=== PATIENT | male | born 1995 | race Caucasian/White ===

== ENCOUNTER 2019-10-10 13:39 | Day surgery (SDC) | payer OTHER ==
[~2019-10-10] VITALS: Ht 185.4 cm; Wt 80.0 kg
--- NOTE | 2019-10-10 15:38 | NUR ---
GENERAL SURGERY PHYSICIAN ASSISTANT: PT TO ROOM FROM LOBBY VIA
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
--- NOTE | 2019-10-10 15:56 | NUR ---
TASK RN: PT AND PTS MOTHER UPDATED ON POC. REPORT TO BENJAMIN LADD.
--- NOTE | 2019-10-10 15:58 | NUR ---
First contact with pt. Pt c/o R shoulder pain 04/16, states has not received any pain medication.
--- NOTE | 2019-10-10 16:00 | NUR ---
Dr. Renteria at bedside to evaluate pt. Discussed pain meds and pt condition with Dr. Renteria. Orders received for 1 tab 5/325mg Percocet PO. Pt medicated per order and ice pack applied to R shoulder, CMS intact in R UE. Pt denies other needs.
[2019-10-10] MEDS ORDERED: OXYcodone/APAP 5/325MG TABLET ONE (16:10)
[2019-10-10] MEDS ORDERED: OXYcodone/APAP 5/325MG TABLET PO ONE (16:30)
--- NOTE | 2019-10-10 16:46 | NUR ---
PIV inserted per order. Pt resting in bed, denies needs.
[2019-10-10] MEDS ORDERED: NEOSPORIN OINT. PKT 1 PACKET ONE (17:02)
[2019-10-10] MEDS ORDERED: HYDROmorphone 1 MG/ML, 1ML INJ ONE (17:02)
--- NOTE | 2019-10-10 17:27 | NUR ---
Pt medicated per DEC for continued pain 05/17 in R shoulder. Abrasions to L side of pt's face cleaned with saliene and bacitracin applied per MD order. Pt also c/o R wrist pain after fall, Dr. Renteria assessing at bedside. xray to be performed.
[2019-10-10] MEDS ORDERED: ONDANSETRON 2MG/ML, 2ML IVPush ONE (17:30)
[2019-10-10] MEDS ORDERED: HYDROmorphone 2 MG/ML, 1ML IVPush PRN (17:30)
[2019-10-10] MEDS ORDERED: PROPOFOL 50 ML ONE (17:47)
[2019-10-10] MEDS ORDERED: MIDAZOLAM 1 MG/ML, 2ML ONE (17:47)
[2019-10-10] MEDS ORDERED: FENTANYL PF 250 MCG/5ML ONE (17:48)
[2019-10-10] MEDS ORDERED: EPINEPHRINE 1 MG/ML, 1ML ONE (17:58)
[2019-10-10] MEDS ORDERED: BUPIVACAINE/PF 0.5% ONE (17:58)
[2019-10-10] MEDS ORDERED: LIDOCAINE 1%-EPI 1:100K, 20ML ONE (17:58)
[2019-10-10] MEDS ORDERED: DEXAMETHASONE 4 MG/ML, 1ML ONE (18:36)
[2019-10-10] MEDS ORDERED: ONDANSETRON 2MG/ML, 2ML ONE (18:36)
[2019-10-10] MEDS ORDERED: EPHEDRINE 50 MG/ML, 1ML IVPush PRN (19:30)
[2019-10-10] MEDS ORDERED: PROMETHAZINE 25 MG/ML, 1ML IV PRN (19:30)
[2019-10-10] MEDS ORDERED: MIDAZOLAM 1 MG/ML, 2ML IV PRN (19:30)
[2019-10-10] MEDS ORDERED: OXYcodone 5 MG/5 ML ORAL.SOL UDC PO PRN (19:30)
[2019-10-10] MEDS ORDERED: ONDANSETRON 2MG/ML, 2ML IV PRN (19:30)
[2019-10-10] MEDS ORDERED: FENTANYL PF 100 MCG/2ML IV PRN (19:30)
[2019-10-10] MEDS ORDERED: DIAZEPAM 5 MG/ML, 2ML IVPush PRN (19:30)
[2019-10-10] MEDS ORDERED: DIPHENHYDRAMINE 50 MG/ML, 1ML IVPush PRN (19:30)
[2019-10-10] MEDS ORDERED: MEPERIDINE/PF 25MG/ML,1ML IVPush PRN (19:30)
[2019-10-10] MEDS ORDERED: HYDROmorphone 1 MG/ML, 1ML INJ IVPush PRN (19:30)
[2019-10-10] MEDS ORDERED: EPHEDRINE 50 MG/ML, 1ML IM PRN (19:30)
[2019-10-10] MEDS ORDERED: ONDANSETRON ODT 8 MG PO PRN (19:30)
[2019-10-10 21:00] VITALS: BP 143/73
[2019-10-10] MEDS ORDERED: HYDR-3240 PO (22:15)
[2019-10-10] MEDS ORDERED: SENN8.6T98 PO (22:16)
[2019-10-10] MEDS ORDERED: MELO15TA24 PO (22:17)
[2019-10-10] MEDS ORDERED: ACET-1600 PO (22:19)
[2019-10-10] MEDS ORDERED: KETOROLAC 30 MG/1 ML IVPush ONE (23:00)
[2019-10-10] MEDS ORDERED: HYDROcodone/APAP 5/325 TABLET PO ONE (23:00)
== END 2019-10-10 23:15 | disposition home or self-care (01) ==
LOC: ED 16:00 → EDIP 16:27 → UNDOADMIN 16:27 → ED 20:20 → 4NE 20:55 → EDIP 20:55 → ED 23:15 → UNDODISIN 23:15
PROVIDERS: ATTEND Emergency Medicine
DX: S42.021A Displaced fracture of shaft of right clavicle, initial encounter for closed fracture (principal); W17.89XA Other fall from one level to another, initial encounter; Y93.23 Activity, snow (alpine) (downhill) skiing, snowboarding, sledding, tobogganing and snow tubing; Y92.89 Other specified places as the place of occurrence of the external cause; Y99.8 Other external cause status
CPT/HCPCS: 23515; 70450; 72125; 73000; 73100; C1713; J0171; J1100; J1170; J1885; J2250; J2405; J2704; J3010; J3490; 76000; G0378